=== PATIENT | male | born 1965 | race Caucasian/White ===

== ENCOUNTER 2020-04-15 16:22 | Emergency (ER) | payer OTHER ==
[~2020-04-15] VITALS: Ht 180.3 cm; Wt 103.9 kg
[2020-04-15] MEDS ORDERED: CALCIPOTRIENE60 G1 TOP (16:44)
[2020-04-15] MEDS ORDERED: TEMOVATE15 GM TOP (16:45)
[2020-04-15] MEDS ORDERED: OMEPRAZOLE20 MG PO (16:46)
[2020-04-15] MEDS ORDERED: MOBIC15 MG PO (16:46)
[2020-04-15] MEDS ORDERED: NAPROSYN500 MG PO (17:14)
== END 2020-04-15 17:30 | disposition home or self-care (01) ==
LOC: ED 16:22
DX: M71.21 Synovial cyst of popliteal space [Baker], right knee (principal); Z87.891 Personal history of nicotine dependence; Z88.8 Allergy status to other drugs, medicaments and biological substances; Z79.899 Other long term (current) drug therapy
CPT/HCPCS: 93971; 99283-25